=== PATIENT | female | born 1995 | race Caucasian/White ===

== ENCOUNTER 2018-11-10 21:11 | Emergency (ER) | payer OTHER ==
--- NOTE | 2018-11-10 23:13 | ER Document Report ---
ED Medical Screen (RME) - General Chief Complaint: Nausea Stated Complaint: SHORTNESS OF BREATH,NAUSEA,FAINTING SPELLS Time Seen by Provider: 11/10/18 23:12 Mode of Arrival: Ambulatory Notes: patient presents with concern she is septic again due to high wbc, fainting spells. she was seen at [facility] two weeks ago, had high wbc, fu with pcp but he did not address this. she was septic in july after csection. looks nontoxic I have greeted and performed a rapid initial assessment of this patient. A comprehensive ED assessment and evaluation of the patient, analysis of test results and completion of the medical decision making process will be conducted by additional ED providers. TRAVEL OUTSIDE OF THE [place] IN LAST 30 DAYS: No Physical Exam - Vital signs Vitals: Temp Pulse Resp BP Pulse Ox 98.6 F 94 18 146/83 H 100 11/10/18 21:41 11/10/18 21:41 11/10/18 21:41 11/10/18 21:41 11/10/18 21:41 Course - Vital Signs Vital signs: Temp Pulse Resp BP Pulse Ox 98.6 F 94 18 146/83 H 100 11/10/18 21:41 11/10/18 21:41 11/10/18 21:41 11/10/18 21:41 11/10/18 21:41
[2018-11-11 01:22] LABS: APPEARANCE,URINE SLIGHTLY-CLOUDY; BILIRUBIN,URINE NEGATIVE (NEGATIVE); COLOR,URINE YELLOW; GLUCOSE, URINE NEGATIVE (NEGATIVE); KETONES,URINE NEGATIVE (NEGATIVE); LEUKOCYTE ESTERASE,URINE NEGATIVE (NEGATIVE); NITRITE,URINE NEGATIVE (NEGATIVE); PROTEIN,URINE NEGATIVE (NEGATIVE); URINE SPECIFIC GRAVITY 1.011; UROBILINOGEN,URINE NEGATIVE mg/dL (<2.0)
[2018-11-11 02:57] LABS: ABSOLUTE BASOPHILS # (AUTO) 0.2 10^3/uL (0.0-0.2); ABSOLUTE EOSINOPHILS # (AUTO) 0.3 10^3/uL (0.0-0.6); ABSOLUTE LYMPHOCYTES (AUTO) 4.2 10^3/uL (0.5-4.7); ABSOLUTE MONOCYTES (AUTO) 0.9 10^3/uL (0.1-1.4); ABSOLUTE NEUT (AUTO) 10.6 10^3/uL (1.7-8.2); HEMATOCRIT 37.3 % (36.0-47.0); HEMOGLOBIN 12.4 g/dL (12.0-15.5); LYMPHOCYTES % (AUTO) 26.2 % (13-45); MEAN CORPUSCULAR HEMOGLOBIN 25.2 pg (27.0-33.4); MEAN CORPUSCULAR HGB CONC 33.3 g/dL (32.0-36.0); MEAN CORPUSCULAR VOLUME 76 fl (80-97); MONOCYTES % (AUTO) 5.7 % (3-13); PLATELET COUNT 294 10^3/uL (150-450); RED BLOOD COUNT 4.93 10^6/uL (3.72-5.28); RED CELL DISTRIBUTION WIDTH 16.4 % (11.5-14.0); SEGMENTED NEUTROPHILS % (AUTO) 65.1 % (42-78); TOTAL CELLS COUNTED % (AUTO) 100 %; WHITE BLOOD COUNT 16.2 10^3/uL (4.0-10.5)
[2018-11-11 03:12] LABS: ALANINE AMINOTRANSFERASE 37 U/L (9-52); ALBUMIN 5.2 g/dL (3.5-5.0); ALKALINE PHOSPHATASE 119 U/L (38-126); ANION GAP 14 (5-19); ASPARTATE AMINO TRANSFERASE 26 U/L (14-36); BILIRUBIN,DIRECT 0.3 mg/dL (0.0-0.4); BILIRUBIN,TOTAL 0.4 mg/dL (0.2-1.3); BLOOD UREA NITROGEN 11 mg/dL (7-20); CALCIUM 10.3 mg/dL (8.4-10.2); CARBON DIOXIDE 24 mmol/L (22-30); CHLORIDE 103 mmol/L (98-107); GLUCOSE 94 mg/dL (75-110); POTASSIUM 3.7 mmol/L (3.6-5.0); TOTAL PROTEIN 8.8 g/dL (6.3-8.2)
--- NOTE | 2018-11-11 05:28 | RADIOLOGY REPORT (SQ) ---
EXAM DESCRIPTION: CT ABDOMEN PELVIS WITHOUT IV CONTRAST COMPLETED DATE/TME: 11/11/2018 04:24 CLINICAL HISTORY: 23 years, Female, eval for pelvic abscess. hx: septic in July after C section. COMPARISON: None. TECHNIQUE: Axial CT images of the abdomen and pelvis were obtained without contrast. Sagittal and coronal reformats were performed. DLP 685 Images stored on PACS. All CT scanners at this facility use dose modulation, iterative reconstruction, and/or weight based dosing when appropriate to reduce radiation dose to as low as reasonably achievable (ALARA). [facility]: Dose Right [facility]: CareDose [facility]: Dose Right [facility]: Teradose 4D [facility]: [employer] LIMITATIONS: None. FINDINGS: The lung bases are clear. The liver, gallbladder, pancreas, spleen, and adrenal glands are unremarkable. There is a punctate nonobstructing stone along the upper pole of the left kidney. There is no evidence of urolithiasis or hydronephrosis on the right. The abdominal aorta is normal in caliber. There is no intraperitoneal free air or fluid. There is no lymphadenopathy. The stomach and small bowel appear unremarkable. The appendix is not uniquely identified, however there are no pericecal inflammatory changes. The colon contains a moderate amount of stool. The uterus and urinary bladder appear unremarkable. There is a left ovarian cyst that measures 3.9 x 3.0 cm. There are no lytic or blastic bone lesions. IMPRESSION: Continued nonobstructing left-sided nephrolithiasis. Left ovarian cyst. Recommend follow-up ultrasound in 6-12 weeks. TECHNICAL DOCUMENTATION: Quality ID # [id number]: Final reports with documentation of one or more dose reduction techniques (e.g., Automated exposure control, adjustment of the mA and/or kV according to patient size, use of iterative reconstruction technique) copyright 2010 [employer]- All Rights Reserved
--- NOTE | 2018-11-11 06:18 | ER Document Report ---
ED General - General Chief Complaint: Nausea Stated Complaint: SHORTNESS OF BREATH,NAUSEA,FAINTING SPELLS Time Seen by Provider: 11/10/18 23:12 Primary Care Provider: LIZANDRO MELENDREZ MD [Primary Care Provider] - Follow up as needed Mode of Arrival: Ambulatory TRAVEL OUTSIDE OF THE [place] IN LAST 30 DAYS: No - HPI Notes: Patient presents to the emergency department for evaluation of multiple, nonspecific complaints. She states she feels nauseated and shaky. She states she had an elevated heart rate recently. She was referred on to cardiology and is awaiting this. She states she is also been told she has an elevated white blood cell count. She has a history of sepsis back in the last year. It was after developing an abscess post . She denies any abdominal pain but admits she is concerned about the possibility of an abscess recurring. She has had no meghan fevers but she states she has had some chills. No cough. No cuts or rashes. No vomiting. No diarrhea. No urinary symptoms. No vaginal discharge. - Related Data Allergies/Adverse Reactions: Sulfa (Sulfonamide Antibiotics) Allergy (Verified 11/11/18 04:28) Past Medical History - General Information source: Patient - Social History Smoking Status: Never Smoker Frequency of alcohol use: Rare Drug Abuse: None Family History: Reviewed & Not Pertinent Patient has suicidal ideation: No Patient has homicidal ideation: No Renal/ Medical History: Denies: Hx Peritoneal Dialysis Past Surgical History: Reports: Hx Section Review of Systems - Review of Systems Constitutional: Chills EENT: No symptoms reported Cardiovascular: See HPI Respiratory: No symptoms reported Gastrointestinal: See HPI Genitourinary: No symptoms reported Female Genitourinary: No symptoms reported Musculoskeletal: No symptoms reported Skin: No symptoms reported Neurological/Psychological: No symptoms reported Physical Exam - Vital signs Vitals: Temp Pulse Resp BP Pulse Ox 98.6 F 94 18 146/83 H 100 11/10/18 21:41 11/10/18 21:41 11/10/18 21:41 11/10/18 21:41 11/10/18 21:41 - Notes Notes: Vital signs reviewed, please refer to chart. Patient is normocephalic, atraumatic. Pupils equal round, reactive to light. Neck is supple without meningismus. Heart is regular rate and rhythm. Lungs are clear to auscultation bilaterally. Abdomen is soft, nontender, normoactive bowel sounds throughout. Extremities without cyanosis, clubbing, edema. Peripheral pulses are equal. Skin is warm and dry. Patient is awake, alert, neurological exam is nonfocal. Course - Re-evaluation Re-evalutation: 11/11/18 06:21 Patient presents emergency department for evaluation. She states she has some nausea but otherwise has very vague complaints. I believe she is mostly safia rned about her history of leukocytosis. She states she was told recently she has a white blood cell count of over 19,000. Today it was decreased but still elevated. She was relieved to hear this news. Her laboratory vesication's were otherwise unremarkable. Patient did have a CT scan of the abdomen and pelvis to evaluate for abscess. No abscess was identified. She does have an ovarian cyst on the left. This has been entirely asymptomatic for the patient. I did recommend 6-12-week follow up as recommended by radiology. She voiced understanding to this. At this point we will then send her home. She does feel reassured. She is to follow-up with primary care and gynecology, return to the ED with worsening or new concerning symptoms of any sort. - Vital Signs Vital signs: Temp Pulse Resp BP Pulse Ox 97.7 F 77 19 126/62 H 100 11/11/18 03:04 11/11/18 03:31 11/11/18 03:31 11/11/18 03:31 11/11/18 03:31 - Laboratory Result Diagrams: 11/11/18 02:44 11/11/18 02:44 Laboratory results interpreted by me: 11/11/18 11/11/18 11/11/18 00:50 02:44 02:44 WBC 16.2 H MCV 76 L MCH 25.2 L RDW 16.4 H Absolute Neutrophils 10.6 H Calcium 10.3 H Total Protein 8.8 H Albumin 5.2 H Urine Blood SMALL H Discharge - Discharge Clinical Impression: Leukocytosis Qualifiers: Leukocytosis type: unspecified Qualified Code(s): D72.829 - Elevated white blood cell count, unspecified Ovarian cyst Qualifiers: Laterality: left Qualified Code(s): N83.202 - Unspecified ovarian cyst, left side Condition: Stable Instructions: Ovarian Cyst ([facility]) Additional Instructions: Follow up with your primary care provider next week. You should have an ult rasound of your ovaries in 6-12 weeks for follow up of your cyst. Return to the ER with worsening or new concerning symptoms. Referrals: LIZANDRO MELENDREZ MD [Primary Care Provider] - Follow up as needed
[2018-11-11 06:25] VITALS: BP 118/79
== END 2018-11-11 06:25 | disposition home or self-care (01) ==
LOC: ER 21:11
DX: D72.829 Elevated white blood cell count, unspecified (principal); N83.202 Unspecified ovarian cyst, left side; R11.0 Nausea; R68.83 Chills (without fever); Z88.2 Allergy status to sulfonamides; Z86.19 Personal history of other infectious and parasitic diseases
CPT/HCPCS: 36415; 74176; 80053; 81001; 84703; 85025; 99284